=== PATIENT | female | born 1955 | race Caucasian/White ===

== ENCOUNTER 2018-07-17 15:44 | Observation (INO) | payer OTHER ==
[~2018-07-17] VITALS: Ht 149.9 cm; Wt 70.8 kg
--- NOTE | 2018-07-17 16:35 | PHYS DOC ---
Past Medical History Additional Past Medical Histor: lung cancer with metastasis Adult General [facility] HPI Patient is a 63 year old female who presents with redness of breath. Patient is a known end-stage lung cancer patient with metastasis. Her home concentrator only goes to 10 L. She was supposed to see hospice at about the time that EMS was called. Hospice has been contacted since she has been in route and in the emergency department and is arranging for a concentrator they can deliver a higher concentration of oxygen. Is also having home medicines arranged for. Discussion with the patient is that she does not want a labs, imaging, nor heroic measures such as CPR or intubation performed if she were to stop breathing or her heart were to stop.[] Review of Systems Review of Systems Constitutional: Denies fever or chills [] Eyes: Denies change in visual acuity, redness, or eye pain [] HENT: Denies nasal congestion or sore throat [] Respiratory: See history of present illness[] Cardiovascular: No chest pain or palpitations[] GI: Denies abdominal pain, nausea, vomiting, bloody stools or diarrhea [] : Denies dysuria or hematuria [] Musculoskeletal: Denies back pain or joint pain [] Integument: Denies rash or skin lesions [] Neurologic: Denies headache, focal weakness or sensory changes [] Endocrine: Denies polyuria or polydipsia [] All other systems were reviewed and found to be within normal limits, except as documented in this note. Current Medications Current Medications Current Medications Medications (Trade) Dose Ordered Sig/Hilda Start Time Stop Time Status Last Admin Dose Admin Alprazolam (Xanax) 0.5 mg 1X ONCE 07/17/18 16:45 07/17/18 17:05 DC Allergies Allergies Allergies Coded Allergies Type Severity Reaction Last Updated Verified Sulfa (Sulfonamide Antibiotics) Allergy Intermediate 07/17/18 No nickel Allergy Mild Rash 07/17/18 Yes Physical Exam Physical Exam Constitutional: Well developed, well nourished, no acute distress, non-toxic appearance. [] HENT: Normocephalic, atraumatic, bilateral external ears normal, oropharynx moist, no oral exudates, nose normal. [] Eyes: PERRLA, EOMI, conjunctiva normal, no discharge. [] Neck: Normal range of motion, no tenderness, supple, no stridor. [] Cardiovascular:Heart rate regular rhythm, no murmur [] Lungs & Thorax: Bilateral breath sounds clear to auscultation [] Abdomen: Bowel sounds normal, soft, no tenderness, no masses, no pulsatile masses. [] Skin: Warm, dry, no erythema, no rash. [] Back: No tenderness, no CVA tenderness. [] Extremities: No tenderness, no cyanosis, no clubbing, ROM intact, no edema. [] Neurologic: Alert and oriented X 3, normal motor function, normal sensory function, no focal deficits noted. [] Psychologic: Affect normal, judgement normal, mood normal. [] Current Patient Data Vital Signs Vital Signs Date Time Temp Pulse Resp B/P (MAP) Pulse Ox O2 Delivery O2 Flow Rate FiO2 07/17/18 15:50 97.9 124 22 142/82 (102) 94 NonRebreather Mask 15.0 97.9 EKG EKG [] Radiology/Procedures Radiology/Procedures [] Course & Med Decision Making Course & Med Decision Making Pertinent Labs and Imaging studies reviewed. (See chart for details) ED course: Patient arrived by EMS, and was placed in our bed without any complication. Discussion with patient and family is that they were initially waiting for a better oxygen concentrator which did not arrive before essentially close of business today. Patient is being admitted to the hospitalist service for supplemental oxygen.[] Dragon Disclaimer Dragon Disclaimer This electronic medical record was generated, in whole or in part, using a voice recognition dictation system. Departure Departure Impression: Primary Impression: Hypoxia Additional Impression: Lung cancer, primary, with metastasis from lung to other site Disposition: ADMITTED INPATIENT Admitting Physician: Xie. Arcos Condition: IMPROVED Referrals: SANDI PRUETT MD (PCP) Problem Qualifiers Additional Impression: Lung cancer, primary, with metastasis from lung to other site Laterality: unspecified laterality Qualified Codes: C34.90 - Malignant neoplasm of unspecified part of unspecified bronchus or lung TISH LIANG DO Jul 17, 2018 16:35
[2018-07-17] MEDS ORDERED: ALPRAZolam 0.5 MG TABLET PO ONE (16:45)
[2018-07-17] MEDS ORDERED: ONDANSETRON ODT 4 MG TAB.RAPDIS. PO PRN (18:00)
[2018-07-17] MEDS ORDERED: ACETAMINOPHEN 325 MG TABLET. PO PRN ×2 (18:00→18:15)
[2018-07-17] MEDS ORDERED: ALPRAZolam 0.5 MG TABLET PO PRN (18:00)
--- NOTE | 2018-07-17 18:12 | PDOC1 ---
History and Physical Date of Admission Date of Admission 07/17/18 Identification/Chief Complaint Chief Complaint need o2 Source Source: Chart review, Patient History of Present Illness History of Present Illness Patient is a 63 year old female who presents with sob. 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 She has her home o2 concentrator for 10l max. She was supposed to see hospice at about the time that EMS was called. Hospice has been contacted since she has been in route and in the emergency department and is arranging for a concentrator they can deliver a higher concentration of oxygen for 15L tmr. ERP Discussed with the patient is that she does not want a labs, imaging, nor heroic measures such as CPR or intubation performed if she were to stop breathing or her heart were to stop. PT NOW looks calm, on [place] 10L seen in ER, no sob, sat 90%. smoked 20ys ago. had chemotherapy before. Past Medical History Past Medical History asthma Past Surgical History Past Surgical History: Cholecystectomy Family History Family History: Hypertension Social History Smoke: Quit ALCOHOL: none Drugs: None Current Problem List Problem List Problems Medical Problems: (1) Hypoxia Status: Acute (2) Lung cancer, primary, with metastasis from lung to other site Status: Acute Current Medications Current Medications Current Medications Medications (Trade) Dose Ordered Sig/Hilda Start Time Stop Time Status Last Admin Dose Admin Acetaminophen (Tylenol) 650 mg PRN Q4HRS PRN 07/17/18 18:00 07/18/18 17:59 Alprazolam (Xanax) 0.5 mg PRN TID PRN 07/17/18 18:00 Ondansetron HCl (Zofran Odt) 4 mg PRN TID PRN 07/17/18 18:00 Allergies Allergies Allergies Coded Allergies Type Severity Reaction Last Updated Verified Sulfa (Sulfonamide Antibiotics) Allergy Intermediate 07/17/18 No nickel Allergy Mild Rash 07/17/18 Yes ROS Review of System CONSTITUTIONAL: No fever or chills EYES: No recent changes SKIN: No rash or itching CARDIOVASCULAR: No chest pain, syncope, palpitations, or edema RESPIRATORY: No SOB or cough GASTROINTESTINAL: No nausea, vomiting or abdominal pain NEUROLOGICAL: No headaches or weakness ENDOCRINE: No cold or heat intolerance GENITOURINARY: No urgency or frequency of urination MUSCULOSKELETAL: No back pain or joint pain LYMPHATICS: No enlarged lymph nodes PSYCHIATRIC: No anxiety or depression Physical Exam Physical Exam GEN.: No apparent distress. Alert and oriented. HEENT: Head is normocephalic, atraumatic NECK: Supple. LUNGS: rt side mild crackles HEART: RRR, S1, S2 present. Peripheral pulses intact ABDOMEN: Soft, nontender. Positive bowel sounds. EXTREMITIES: Without any cyanosis. NEUROLOGIC: Normal speech, normal tone PSYCHIATRIC: Normal affect, normal mood. SKIN: No ulcerations Vitals Vitals Vital Signs Date Time Temp Pulse Resp B/P (MAP) Pulse Ox O2 Delivery O2 Flow Rate FiO2 07/17/18 15:50 97.9 124 22 142/82 (102) 94 NonRebreather Mask 15.0 97.9 VTE Prophylaxis Ordered VTE Prophylaxis Devices: Yes VTE Pharmacological Prophylaxi: No Assessment/Plan Assessment/Plan non small cell lung Ca with mets to brain, kidneys sob acute on chronic hypoxic resp failure plan: admitted to hosp as ob, only for o2. now on [place] 10l, comfortable, sat 90%. if sob, change to ventimask or non breather, albuterol prn. sw for dc set up, need to contact hospice service for home o2 set up pt doesnot want labs or work up, which is ok. DNR. SCAR CARLOS MD Jul 17, 2018 18:12
[2018-07-17] MEDS ORDERED: MORPHINE SULFATE 4 MG/ML VIAL. IV PRN (18:15)
[2018-07-17] MEDS ORDERED: traMADol 50 MG TABLET PO PRN (18:15)
[2018-07-17] MEDS ORDERED: hydrALAZINE 20 MG/ML VIAL. IVP PRN (18:15)
[2018-07-17] MEDS ORDERED: ALBUTEROL SULFATE 2.5 MG/3 ML NEBU. NEB PRN (18:15)
[2018-07-17] MEDS ORDERED: DOCUSATE SODIUM 100 MG CAPSULE. PO PRN (18:15)
[2018-07-17] MEDS ORDERED: ONDANSETRON PF 4 MG/2 ML VIAL. IV PRN (18:15)
[2018-07-17] MEDS ORDERED: LORazepam 1 MG TABLET PO ONE (19:15)
[2018-07-17 21:10] VITALS: BP 138/61
[2018-07-17] MEDS ORDERED: ETHA25TA3 PO (21:33)
[2018-07-17] MEDS ORDERED: FLUO40CA2 PO (21:33)
[2018-07-17] MEDS ORDERED: ALBU2.5V5 NEB (21:33)
[2018-07-18] MEDS ORDERED: FOLI1TAB16 PO (04:26)
[2018-07-18] MEDS ORDERED: LEVO50TA5 PO (04:26)
[2018-07-18] MEDS ORDERED: LORA1TAB PO (04:26)
[2018-07-18] MEDS ORDERED: IPRA0.2S5 NEB (04:26)
[2018-07-18] MEDS ORDERED: TRIA10.8 NS (04:26)
[2018-07-18] MEDS ORDERED: METF500T9 PO (04:26)
[2018-07-18 07:00] VITALS: BP 119/51
--- NOTE | 2018-07-18 09:49 | PDOC ---
PROGRESS NOTES Chief Complaint Chief Complaint Patient is a 63 year old female who presents with sob. 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 She has her home o2 concentrator for 10l max. She was supposed to see hospice at about the time that EMS was called. Hospice has been contacted since she has been in route and in the emergency department and is arranging for a concentrator they can deliver a higher concentration of oxygen for 15L ERP Discussed with the patient is that she does not want a labs, imaging, nor heroic measures such as CPR or intubation performed if she were to stop breathing or her heart were to stop. PT NOW looks calm, on [place] 10L seen in ER, no sob, sat 90%. smoked 20ys ago. had chemotherapy before. History of Present Illness History of Present Illness Lung cancer, primary, with metastasis from lung to other site non small cell lung Ca with mets to brain, kidneys dyspnea acute on chronic hypoxic resp failure plan: admitted to hosp as ob, only for o2. now on NC 10l, comfortable, sat 90%. if sob, change to ventimask or non breather, albuterol prn. sw for dc set up, need to contact hospice service for home o2 set up pt does not want labs or work up, DNR. Vitals Vitals Vital Signs Date Time Temp Pulse Resp B/P (MAP) Pulse Ox O2 Delivery O2 Flow Rate FiO2 07/18/18 07:59 Nasal Cannula 15.0 07/18/18 07:00 98.3 93 20 119/51 (73) 88 98.3 Physical Exam Physical Exam NECK: Supple. LUNGS: rt side mild crackles HEART: RRR, S1, S2 present. Peripheral pulses intact ABDOMEN: Soft, nontender. Positive bowel sounds. EXTREMITIES: Without any cyanosis. NEUROLOGIC: Normal speech, normal tone PSYCHIATRIC: Normal affect, normal mood. General: Alert, Cooperative, mild distress Abdomen: No tenderness Assessment and Plan Assessmemt and Plan Problems Medical Problems: (1) Hypoxia Status: Acute (2) Lung cancer, primary, with metastasis from lung to other site Status: Acute Comment Review of Relevant I have reviewed the following items kedar (where applicable) has been applied. Medications Current Medications Alprazolam (Xanax) 0.5 mg 1X ONCE PO Last administered on 07/17/18at 18:11; Start 07/17/18 at 16:45; Stop 07/17/18 at 17:05; Status DC Acetaminophen (Tylenol) 650 mg PRN Q4HRS PRN PO FEVER; Start 07/17/18 at 18:00; Stop 07/17/18 at 18:08; Status DC Ondansetron HCl (Zofran Odt) 4 mg PRN TID PRN PO NAUSEA/VOMITING Last administered on 07/18/18 07:24; Start 07/17/18 at 18:00 Alprazolam (Xanax) 0.5 mg PRN TID PRN PO ANXIETY Last administered on 07/18/18 04:37; Start 07/17/18 at 18:00 Albuterol Sulfate (Ventolin Neb Soln) 2.5 mg PRN Q4HRS PRN NEB SHORTNESS OF BREATH Last administered on 07/18/18 07:56; Start 07/17/18 at 18:15 Acetaminophen (Tylenol) 650 mg PRN Q6HRS PRN PO FEVER; Start 07/17/18 at 18:15 Ondansetron HCl (Zofran) 4 mg PRN Q6HRS PRN IV NAUSEA/VOMITING; Start 07/17/18 at 18:15 Morphine Sulfate (Morphine Sulfate) 2 mg PRN Q2HR PRN IV MODERATE TO SEVERE PAIN; Start 07/17/18 at 18:15 Tramadol HCl (Ultram) 50 mg PRN Q6HRS PRN PO MILD TO MODERATE PAIN; Start at 18:15 Hydralazine HCl (Apresoline Inj) 10 mg PRN Q4HRS PRN IVP ELEVATED BP, SEE COMMENTS; Start 07/17/18 at 18:15 Docusate Sodium (Colace) 100 mg PRN DAILY PRN PO CONSTIPATION; Start 07/17/18 at 18:15 Lorazepam (Ativan) 1 mg 1X ONCE PO Last administered on 07/17/18at 19:35; Start 07/17/18 at 19:15; Stop 07/17/18 at 19:16; Status DC Active Scripts Active Reported Nasacort (Triamcinolone Acetonide) 10.8 Ml [place] 2 [place] DAILY Ipratropium [place] 0.2 Mg/1 Ml Solution 0.2 Mg NEB PRN Q4HRS PRN Metformin Hcl Er (Metformin Hcl) 500 Mg Tab.er.24h 500 Mg PO DAILYWSUP Lorazepam 1 Mg Tablet 1 Mg PO TID Levothyroxine Sodium 50 Mcg Tablet 50 Mcg PO DAILYAC Folic Acid 1 Mg Tablet 1 Mg PO DAILY Fluoxetine Hcl 40 Mg Capsule 40 Mg PO DAILY Ethacrynic Acid 25 Mg Tablet 50 Mg PO DAILY Albuterol Sulfate Neb Soln (Albuterol Sulfate) 2.5 Mg/3 Ml Vial.neb 2.5 Mg NEB Q4HRS Vitals/I & O Vital Sign - Last 24 Hours 07/17/18 07/17/18 07/17/18 07/17/18 15:50 17:05 18:10 19:05 Temp 97.9 97.9 Pulse 124 102 94 90 Resp 22 20 20 18 B/P (MAP) 142/82 (102) 128/76 (93) 122/64 (83) 118/56 (76) Pulse Ox 94 93 92 93 O2 Delivery NonRebreather Mask Nasal Cannula Nasal Cannula Nasal Cannula O2 Flow Rate 15.0 15.0 15.0 15.0 07/17/18 07/17/18 07/17/18 07/18/18 20:15 21:10 21:20 07:00 Temp 98.2 98.3 98.2 98.3 Pulse 90 98 93 Resp 20 20 20 B/P (MAP) 118/72 (87) 138/61 (86) 119/51 (73) Pulse Ox 92 93 88 O2 Delivery Nasal Cannula Nasal Cannula Nasal Cannula Nasal Cannula O2 Flow Rate 15.0 15.0 15.0 15.0 07/18/18 07/18/18 07:39 07:59 O2 Delivery Nasal Cannula Nasal Cannula O2 Flow Rate 15.0 15.0 Intake and Output 07/17/18 07/17/18 07/18/18 15:01 23:01 07:01 Intake Total 0 ml 0 ml Balance 0 ml 0 ml TA PLAZA MD Jul 18, 2018 09:49
[2018-07-18 10:37] VITALS: BP 98/38
--- NOTE | 2018-07-18 10:53 | PDOC3 ---
Discharge Summary Date of Admission: Jul 17, 2018 Date of Discharge: Jul 18, 2018 Follow-Up: 1-2 days Admitting Diagnosis comment: Chief Complaint Chief Complaint Patient is a 63 year old female who presents with sob. 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 She has her home o2 concentrator for 10l max. She was supposed to see hospice at about the time that EMS was called. Hospice has been contacted since she has been in route and in the emergency department and is arranging for a concentrator they can deliver a higher concentration of oxygen for 15L ERP Discussed with the patient is that she does not want a labs, imaging, nor heroic measures such as CPR or intubation performed if she were to stop breathing or her heart were to stop. PT NOW looks calm, on [place] 10L seen in ER, no sob, sat 90%. smoked 20ys ago. had chemotherapy before. discharge diagnosis History of Present Illness Lung cancer, primary, with metastasis from lung to other site non small cell lung Ca with mets to brain, kidneys dyspnea acute on chronic hypoxic resp failure plan: admitted to hosp as ob, only for o2.support now on [place] 10l, comfortable, sat 90%. if sob, change to ventimask or non breather, albuterol prn. for dc set up, need to contact hospice service for home o2 set up pt does not want labs or work up, DNR. Vitals Vitals Vital Signs Date Time Temp Pulse Resp B/P (MAP) Pulse Ox O2 Delivery O2 Flow Rate FiO2 07/18/18 07:59 Nasal Cannula 15.0 07/18/18 07:00 98.3 93 20 119/51 (73) 88 98.3 Physical Exam Physical Exam NECK: Supple. LUNGS: rt side mild crackles HEART: RRR, S1, S2 present. Peripheral pulses intact ABDOMEN: Soft, nontender. Positive bowel sounds. EXTREMITIES: Without any cyanosis. NEUROLOGIC: Normal speech, normal tone PSYCHIATRIC: Normal affect, normal mood. General: Alert, Cooperative, mild distress Abdomen: No tenderness FINAL DIAGNOSIS Problems Medical Problems: (1) Hypoxia Status: Acute (2) Lung cancer, primary, with metastasis from lung to other site Status: Acute Brief Hospital Course Ms. Tavarez is a 63 old [sex] who presented with [ ] CONDITION AT DISCHARGE: Comment (guarded) Discharge Medications Current Medications Alprazolam (Xanax) 0.5 mg 1X ONCE PO Last administered on 07/17/18at 18:11; Start 07/17/18 at 16:45; Stop 07/17/18 at 17:05; Status DC Acetaminophen (Tylenol) 650 mg PRN Q4HRS PRN PO FEVER; Start 07/17/18 at 18:00; Stop 07/17/18 at 18:08; Status DC Ondansetron HCl (Zofran Odt) 4 mg PRN TID PRN PO NAUSEA/VOMITING Last administered on 07/18/18 07:24; Start 07/17/18 at 18:00 Alprazolam (Xanax) 0.5 mg PRN TID PRN PO ANXIETY Last administered on 07/18/18 04:37; Start 07/17/18 at 18:00 Albuterol Sulfate (Ventolin Neb Soln) 2.5 mg PRN Q4HRS PRN NEB SHORTNESS OF BREATH Last administered on 07/18/18at 07:56; Start 07/17/18 at 18:15 Acetaminophen (Tylenol) 650 mg PRN Q6HRS PRN PO FEVER; Start 07/17/18 at 18:15 Ondansetron HCl (Zofran) 4 mg PRN Q6HRS PRN IV NAUSEA/VOMITING; Start 07/17/18 at 18:15 Morphine Sulfate (Morphine Sulfate) 2 mg PRN Q2HR PRN IV MODERATE TO SEVERE PAIN; Start 07/17/18 at 18:15 Tramadol HCl (Ultram) 50 mg PRN Q6HRS PRN PO MILD TO MODERATE PAIN; Start at 18:15 Hydralazine HCl (Apresoline Inj) 10 mg PRN Q4HRS PRN IVP ELEVATED BP, SEE COMMENTS; Start 07/17/18 at 18:15 Docusate Sodium (Colace) 100 mg PRN DAILY PRN PO CONSTIPATION; Start 07/17/18 at 18:15 Lorazepam (Ativan) 1 mg 1X ONCE PO Last administered on 07/17/18at 19:35; Start 07/17/18 at 19:15; Stop 1/3/19 at 19:16; Status DC Active Scripts Active Reported Nasacort (Triamcinolone Acetonide) 10.8 Ml [place] 2 [place] NS DAILY Ipratropium [place] 0.2 Mg/1 Ml Solution 0.2 Mg NEB PRN Q4HRS PRN Metformin Hcl Er (Metformin Hcl) 500 Mg Tab.er.24h 500 Mg PO DAILYWSUP Lorazepam 1 Mg Tablet 1 Mg PO TID Levothyroxine Sodium 50 Mcg Tablet 50 Mcg PO DAILYAC Folic Acid 1 Mg Tablet 1 Mg PO DAILY Fluoxetine Hcl 40 Mg Capsule 40 Mg PO DAILY Ethacrynic Acid 25 Mg Tablet 50 Mg PO DAILY Albuterol Sulfate Neb Soln (Albuterol Sulfate) 2.5 Mg/3 Ml Vial.neb 2.5 Mg NEB Q4HRS Vital Signs Vital Signs Date Time Temp Pulse Resp B/P (MAP) Pulse Ox O2 Delivery O2 Flow Rate FiO2 07/18/18 10:37 98.1 91 18 98/38 (58) 91 Nasal Cannula 15.0 98.1 Allergies Allergies Coded Allergies Type Severity Reaction Last Updated Verified Sulfa (Sulfonamide Antibiotics) Allergy Intermediate 07/17/18 No nickel Allergy Mild Rash 07/17/18 Yes Disposition/Orders: D/C to Home w/ Hospice Patient Instructions d/c planning 33 min TA PLAZA MD Jul 18, 2018 10:53
--- NOTE | 2018-07-18 10:55 | DISCH ---
DISCHARGE DISCHARGE INFORMATION: FINAL DIAGNOSIS Problems Medical Problems: (1) Hypoxia Status: Acute (2) Lung cancer, primary, with metastasis from lung to other site Status: Acute CONDITION ON DISCHARGE: Critical CODE STATUS: Code Status: DNR/DNI PRISON: SNF STAY <30 DAYS: No HOSPICE: HOSPICE: Yes HOSPICE EVAL & TREAT: Yes LTAC: ADMIT TO LTAC: No POST DISCHARGE ORDERS: ACTIVITY ORDERS: Activity as tolerated DIET AFTER DISCHARGE: Regular CHECKS AFTER DISCHARGE: CHECKS AFTER DISCHARGE: Check blood press - daily TREATMENT/EQUIPMENT ORDERS: ADAPTIVE EQUIPMENT NEEDED: [employer] DISCHARGE MEDICATIONS: Home Meds Reported Medications Triamcinolone Acetonide (NASACORT) 10.8 Ml [place], 2 SPRAY NS DAILY for ASTHMA, SPRAY 07/18/18 Ipratropium [place] (IPRATROPIUM BROMIDE) 0.2 Mg/1 Ml Solution, 0.2 MG NEB PRN Q4HRS PRN for ANAPHYLAXIS 07/18/18 Metformin Hcl (METFORMIN HCL ER) 500 Mg Tab.er.24h, 500 MG PO DAILYWSUP for DIABETES, TAB 07/18/18 Lorazepam (LORAZEPAM) 1 Mg Tablet, 1 MG PO TID for ANXIETY, TAB 07/18/18 Levothyroxine Sodium (LEVOTHYROXINE SODIUM) 50 Mcg Tablet, 50 MCG PO DAILYAC for THYROID SUPPLEMENT, #30 TAB 0 Refills 07/18/18 Folic Acid (FOLIC ACID) 1 Mg Tablet, 1 MG PO DAILY for VITAMIN, TAB 07/18/18 Fluoxetine Hcl (FLUOXETINE HCL) 40 Mg Capsule, 40 MG PO DAILY for organ function 07/17/18 Ethacrynic Acid (Ethacrynic Acid) 25 Mg Tablet, 50 MG PO DAILY for cancer 07/17/18 Albuterol Sulfate (ALBUTEROL SULFATE NEB SOLN) 2.5 Mg/3 Ml Vial.neb, 2.5 MG NEB Q4HRS for lung cancer 07/17/18 TA PLAZA MD Jul 18, 2018 10:55
--- NOTE | 2018-07-18 11:15 | NUR ---
SW responding to a referral regarding arrange hospice home 02. SW spoke with pt and pt's daughter in room. Pt is already set up with hospice and per daughter, they now have all the equipment they need at home. HALLIE arranged transportation via [facility] at 1230. hospice and family notified of plan. RN notified.
[2018-07-18] MEDS ORDERED: LORazepam INTENSOL 2 MG/ML ORAL.CONC SL ONE (11:45)
--- NOTE | 2018-07-18 12:35 | NUR ---
Discharge Note: ESTEBAN CINTRON Discharge instructions and discharge home medications reviewed with Patient and a copy given. All questions have been answered and understanding verbalized. The following instructions and handouts were given: worsening symptoms, medications, and activity. Discontinued lines and drains: No IV's were present to pull. Patient discharged to home with hospice via EMS.
== END 2018-07-18 12:39 | disposition hospice, home (50) ==
LOC: ER 15:44 → ED HOLD 18:38 → 6 SOUTH 21:14
PROVIDERS: ADMIT Internal Medicine; ATTEND Internal Medicine
DX: J96.21 Acute and chronic respiratory failure with hypoxia (principal); J45.909 Unspecified asthma, uncomplicated; C34.90 Malignant neoplasm of unspecified part of unspecified bronchus or lung; C79.31 Secondary malignant neoplasm of brain; C79.51 Secondary malignant neoplasm of bone; Z99.81 Dependence on supplemental oxygen; Z85.118 Personal history of other malignant neoplasm of bronchus and lung; Z82.49 Family history of ischemic heart disease and other diseases of the circulatory system
CPT/HCPCS: 94640; 99284; G0378; J7613; Q0162; G0379